=== PATIENT | female | born 1935 | race Caucasian/White ===

== ENCOUNTER 2021-10-09 08:23 | Outpatient (CLI) | payer OTHER, SELFPAY | END 2021-10-09 08:24 | disposition home or self-care (01) | LOC: FRMREF 10-12 13:54 | PROVIDERS: PCP Physician Assistant Medical; Visit Provider Family Medicine | DX: R30.0 Dysuria (principal); N39.0 Urinary tract infection, site not specified | CPT/HCPCS: 87086 ==

== ENCOUNTER 2021-10-11 07:33 | Outpatient (CLI) | payer OTHER, SELFPAY ==
[2021-10-11 14:27] LABS: Albumin* 3.8 g/dL (3.3-5.0)
[2021-10-11 14:28] LABS: Chloride* 106 mmol/L (96-114); Potassium* 4.1 mmol/L (3.6-5.1); Sodium* 139 mmol/L (135-149)
[2021-10-11 14:30] LABS: Aspartate Amino Transferase* 25 U/L (12-35); Bilirubin Total* 0.3 mg/dL (0.1-1.5); Carbon Dioxide* 26 mmol/L (20-32); Cholesterol* 145 mg/dL (90-199); Creatinine* 0.8 mg/dL (0.5-1.5); Estimated Glomerular Filt Rate 73 ml/min; Total Protein* 6.4 g/dL (6.0-8.3)
[2021-10-11 14:31] LABS: Alanine Aminotransferase* 13 U/L (4-35); Alkaline Phosphatase* 93 U/L (40-150); Blood Urea Nitrogen* 17 mg/dL (7-30); Calcium* 8.9 mg/dL (8.4-10.6); Glucose* 96 mg/dL (60-115); HDL Cholesterol* 60 mg/dL (>=50); LDL Cholesterol Calculated 66 mg/dL (<100); Triglycerides* 94 mg/dL (40-149)
== END 2021-10-11 07:34 | disposition home or self-care (01) ==
LOC: FRMLAB 07:34
PROVIDERS: PCP Physician Assistant Medical; Visit Provider Physician Assistant Medical
DX: Z00.00 Encounter for general adult medical examination without abnormal findings (principal); F03.90 Unspecified dementia, unspecified severity, without behavioral disturbance, psychotic disturbance, mood disturbance, and anxiety; N39.0 Urinary tract infection, site not specified; R30.0 Dysuria
CPT/HCPCS: 36415; 80053; 80061; 84443

== ENCOUNTER 2022-10-29 08:15 | Outpatient (CLI) | payer OTHER, SELFPAY | END 2022-10-29 08:16 | disposition home or self-care (01) | LOC: NFLDREF 10-30 05:51 | PROVIDERS: PCP Physician Assistant Medical; Referring Provider Physician Assistant Medical; Visit Provider Physician Assistant Medical | DX: Z00.00 Encounter for general adult medical examination without abnormal findings (principal); E78.2 Mixed hyperlipidemia; I10 Essential (primary) hypertension; M79.89 Other specified soft tissue disorders | CPT/HCPCS: 80053; 80061; 84439; 84443 ==

== ENCOUNTER 2023-06-27 09:19 | Outpatient (CLI) | payer OTHER, SELFPAY | END 2023-06-27 09:20 | disposition home or self-care (01) | LOC: NFLDREF 06-30 07:53 | PROVIDERS: PCP Physician Assistant Medical; Referring Provider Physician Assistant Medical; Visit Provider Family Medicine | DX: N30.01 Acute cystitis with hematuria (principal); B96.20 Unspecified Escherichia coli [E. coli] as the cause of diseases classified elsewhere | CPT/HCPCS: 87086; 87186 ==

== ENCOUNTER 2023-11-10 08:30 | Outpatient (CLI) | payer OTHER, SELFPAY | END 2023-11-10 08:31 | disposition home or self-care (01) | LOC: NFLDREF 11-12 17:11 | PROVIDERS: PCP Physician Assistant Medical; Referring Provider Physician Assistant Medical; Visit Provider Physician Assistant Medical | DX: Z00.00 Encounter for general adult medical examination without abnormal findings (principal); E78.2 Mixed hyperlipidemia; E05.90 Thyrotoxicosis, unspecified without thyrotoxic crisis or storm; I10 Essential (primary) hypertension; M85.80 Other specified disorders of bone density and structure, unspecified site | CPT/HCPCS: 80053; 80061; 84443 ==

== ENCOUNTER 2023-11-27 14:28 | Outpatient (CLI) | payer OTHER, SELFPAY ==
--- NOTE | 2023-11-27 15:00 | CRLHL7_ITS ---
For Patients: As a result of the Century Cures Act, medical imaging exams and procedure reports are released immediately into your electronic medical record. You may view this report before your referring provider. If you have questions, please contact your health care provider. DXA BONE MINERAL DENSITY STUDY Reason for exam: Osteopenia. Current height (inches): 62 Weight (lbs.): 150 Menopause age: 52 Ethnicity: White 1. Have you had a previous hip or vertebral fracture? No. 2. Have you had any fractures during your adult life which did not result from significant trauma (e.g., auto accident)? No. 3. Did either of your parents have a hip fracture? No. 4. Do you smoke? No. 5. Have you ever taken Glucocorticoids? No. 6. Do you have rheumatoid arthritis? No. 7. Do you have secondary osteoporosis? No. 8. Do you drink 3 or more alcoholic drinks per day? No. 9. Are you being treated for osteoporosis? No. 10. Have you ever taken any of the following medications: Actonel, Evista, Fosamax, Miacalcin, Reclast, Boniva, Forteo, HRT (i.e., estrogen/hormone therapy), Protelos, Prolia, Vitamin D, Calcium, other ??? please specify. ANSWER: Yes; vitamin D and calcium. 11. Do you have any of the following medical conditions: Anorexia or bulimia, asthma or emphysema, end stage renal disease, hyperparathyroidism, any seizure disorders, cancer, inflammatory bowel diseases, hysterectomy, other ??? please specify. ANSWER: No. 12. What was your maximum height (inches)? 62. 13. Do you perform weightbearing exercise regularly? No. 14. Do you regularly consume dairy products? Yes. 15. Do you drink caffeinated beverages? No. 16. At what age did your period start? 17. 17. Are you premenopausal? No. 18. How many full-term pregnancies have you had? 9. 19. Have you ever missed your period for more than 6 months in a row (not including or menopause)? No. TECHNIQUE: Bone mineral density study was performed using the [employer]. FINDINGS: The results of the study expressed as bone mineral density (BMD) are as follows: Lumbar Spine L1 to L4: BMD: 1.027 g/cm2. T-score: -0.2. Z-score: 2.7. Neck Left: BMD: 0.680 g/cm2. T-score: -1.5. Z-score: 1.0. Right: BMD: 0.732 g/cm2. T-score: -1.1. Z-score: 1.5. Total Left: BMD: 0.801 g/cm2. T-score: -1.2. Z-score: 1.2. Right: BMD: 0.859 g/cm2. T-score: -0.7. Z-score: 1.7. IMPRESSION: Osteopenia. COMPARISON: Compared with scan of 11/02/2020, the bone mineral density has decreased by 0.6% at the spine and decreased by 0.1% at the hip. Compared with scan of 11/09/2018, the bone mineral density has decreased by 4.1% at the spine and increased by 2.6% at the hip. *Comparison exams done prior to 07/2019 were performed on different unit, [facility]. FRAX 10-year Fracture Risk Major Osteoporotic Fracture: 13% Hip Fracture: 3.6% Reported Risk Factors: [place] () Neck BMD = 0.680, BMI = 27.4. ARTUR SMITH M.D. Diagnostic Radiologist [email or web address] Transcribed: 5:[address]/Dictated by: Artur Smith MD @ 11/28/2023 12:33:00 PM (Electronically Signed)
== END 2023-11-27 14:29 | disposition home or self-care (01) ==
LOC: RAD 14:29
PROVIDERS: PCP Physician Assistant Medical; Visit Provider Physician Assistant Medical
DX: M85.80 Other specified disorders of bone density and structure, unspecified site (principal); M85.89 Other specified disorders of bone density and structure, multiple sites
CPT/HCPCS: 77080

== ENCOUNTER 2023-12-21 10:33 | Outpatient (CLI) | payer OTHER, SELFPAY | END 2023-12-21 10:34 | disposition home or self-care (01) | LOC: NFLDREF 12-22 14:39 | PROVIDERS: PCP Physician Assistant Medical; Referring Provider Physician Assistant Medical; Visit Provider Nurse Practitioner Family | DX: N30.90 Cystitis, unspecified without hematuria (principal) | CPT/HCPCS: 87086; 87186 ==

== ENCOUNTER 2024-01-18 09:43 | Outpatient (CLI) | payer OTHER, SELFPAY | END 2024-01-18 09:44 | disposition home or self-care (01) | LOC: NFLDREF 15:09 | PROVIDERS: PCP Physician Assistant Medical; Referring Provider Physician Assistant Medical; Visit Provider Family Medicine | DX: N39.0 Urinary tract infection, site not specified (principal) | CPT/HCPCS: 87086; 87186 ==

== ENCOUNTER 2024-04-22 08:14 | Outpatient (CLI) | payer OTHER, SELFPAY | END 2024-04-22 08:15 | disposition home or self-care (01) | LOC: NFLDREF 04-23 10:02 | PROVIDERS: PCP Physician Assistant Medical; Referring Provider Physician Assistant Medical; Visit Provider Physician Assistant Medical | DX: N30.00 Acute cystitis without hematuria (principal) | CPT/HCPCS: 87086 ==

== ENCOUNTER 2024-11-15 07:34 | Outpatient (CLI) | payer OTHER, SELFPAY | END 2024-11-15 07:35 | disposition home or self-care (01) | LOC: NFLDREF 11-18 07:44 | PROVIDERS: PCP Physician Assistant Medical; Referring Provider Physician Assistant Medical; Visit Provider Physician Assistant Medical | DX: E78.2 Mixed hyperlipidemia (principal); I10 Essential (primary) hypertension; M79.89 Other specified soft tissue disorders; M85.80 Other specified disorders of bone density and structure, unspecified site | CPT/HCPCS: 80053; 80061; 84443 ==

== ENCOUNTER 2025-02-22 09:29 | Outpatient (CLI) | payer OTHER, SELFPAY | END 2025-02-22 09:30 | disposition home or self-care (01) | LOC: NFLDREF 03-01 12:06 | PROVIDERS: PCP Physician Assistant Medical; Referring Provider Physician Assistant Medical; Visit Provider Family Medicine | DX: R09.81 Nasal congestion (principal); B34.9 Viral infection, unspecified | CPT/HCPCS: 80048 ==